=== PATIENT | female | born 1965 | race Caucasian/White ===

== ENCOUNTER 2016-11-10 03:56 | Emergency (ER) | payer BC ==
[~2016-11-10] VITALS: Ht 165.1 cm; Wt 62.7 kg
[2016-11-10 03:56] VITALS: Ht 165.1 cm; Wt 62.7 kg
[~2016-11-10 03:56] MED LIST: BUTA1CAP5 PO; CITA-49 PO; FENO150C2 PO; HYDR-2122 PO; LOVA20TA3 PO; OMEP40CA30 PO
--- OUTSIDE RECORDS SUMMARY | 2016-11-10 04:02 | XMS REPORT | Referral Summary ---
Author Author [facility], Family Medicine Organization [facility] Address Unknown Phone Unavailable Care Team Providers Care Object Oriented Developer Name Role Phone Augustin Estrada Primary Care Physician [phone] Encounter Date(s): 11/28/15 - 11/28/15 [facility], [address] [place] [address]- Discharge Diagnosis: Contusion of thorax, unspecified, initial encounter Discharge Disposition: 01-Home or Self Care Attending Physician: Mark Lopez MD Admitting Physician: Mark Lopez MD Vital Signs Most recent to 1 oldest [Reference Range]: Temperature Tympanic 36.8 degC [36.6-38.1 degC] (11/28/15 4:36 PM) Peripheral Pulse 80 bpm Rate [60-100 bpm] (11/28/15 4:36 PM) Respiratory Rate 16 br/min [14-20 br/min] (11/28/15 4:36 PM) Blood Pressure 124/84 mmHg [90-140/60-90 mmHg] (11/28/15 4:36 PM) Problem List No data available for this section Allergies, Adverse Reactions, Alerts Substance Reaction Severity Status Imitrex Active Topamax Active Medications citalopram 40 mg oral tablet 60 mg 1.5 tabs, Oral, Daily, 0 Refill(s) Start Date: 10/04/15 Status: Ordered cyclobenzaprine Oral, TID, as needed for muscle spasm, 0 Refill(s) Start Date: 10/10/15 Status: Ordered hydrOXYzine 50 mg, Oral, Daily, 0 Refill(s) Start Date: 10/04/15 Status: Ordered Lipofen 150 mg oral capsule mg caps, Oral, Daily, 0 Refill(s) Start Date: 10/04/15 Status: Ordered lovastatin 20 mg oral tablet 20 mg, Oral, Daily, 0 Refill(s) Start Date: 10/04/15 Status: Ordered omeprazole 40 mg oral delayed release capsule 40 mg, Oral, Daily, 0 Refill(s) Start Date: 10/04/15 Status: Ordered Results No data available for this section Immunizations No data available for this section Procedures No data available for this section Social History Social History Type Response Smoking Status Current every day smoker; Type: Cigarettes; Tobacco use per day: Pack Assessment and Plan Extracted from: Title: Office Visit Note Author: Mark Lopez MD Date: 11/28/15 Assessment/Plan 1.Contusion of thorax, unspecified, initial encounter She appears to be back to normal. Notes were completed to allow her to return to work without restriction. No further follow-up unless she has further problems questions or concerns. Ordered: Office Visit Level 3 Est 41900
--- OUTSIDE RECORDS SUMMARY | 2016-11-10 04:02 | XMS REPORT | Referral Summary ---
Author Author [facility], Family Medicine Organization [facility] Address Unknown Phone Unavailable Care Team Providers Care Canal Structure Operator Name Role Phone Madison Lopez Primary Care Physician [phone] Encounter VC Date(s): 05/06/16 - 05/06/16 [facility] [address] [place] [id number] Discharge Diagnosis: Acute bronchitis due to other specified organisms Discharge Diagnosis: Acute bronchitis Discharge Diagnosis: Acute bronchospasm Discharge Disposition: 01-Home or Self Care Attending Physician: Mark Lopez MD Admitting Physician: Mark Lopez MD Vital Signs Most recent to 1 oldest [Reference Range]: Temperature Tympanic 37.0 degC [36.6-38.1 degC] (05/06/16 1:27 PM) Peripheral Pulse 84 bpm Rate [60-100 bpm] (05/06/16 1:27 PM) Respiratory Rate 16 br/min [14-20 br/min] (05/06/16 1:27 PM) Blood Pressure 110/80 mmHg [90-140/60-90 mmHg] (05/06/16 1:27 PM) Problem List Condition Effective Dates Status Health Status Informant Chronic Active GERD(Confirmed) Hypercholesteremia(C Active onfirmed) Migraine(Confirmed) Active Depression(Confirmed Active ) Allergies, Adverse Reactions, Alerts Substance Reaction Severity Status Imitrex Active Topamax Active Medications citalopram 40 mg oral tablet 40 mg 1 tabs, Oral, Daily, note change in sig, # 90 tabs, 3 Refill(s), [facility] : [facility] #[id number], 1 tabs Oral Daily,Instr:note change in sig Start Date: 04/30/16 Status: Ordered Fioricet oral tablet 2 tabs, Oral, q4hr, as needed for headache, # 30 tabs, 0 Refill(s), Pharmacy: [facility] #[id number] Start Date: 04/30/16 Stop Date: 04/30/17 Status: Ordered hydrOXYzine 50 mg, Oral, Daily, 0 Refill(s) Start Date: 10/04/15 Status: Ordered Levaquin 500 mg oral tablet 500 mg 1 tabs, Oral, q24hr, X 10 days, # 10 tabs, 0 Refill(s), Pharmacy: [facility] #[id number], 1 tabs Oral q24hr,x10 days Start Date: 05/06/16 Stop Date: 05/16/16 Status: Ordered lovastatin 20 mg oral tablet 20 mg, Oral, Daily, # 90 tabs, 3 Refill(s), Pharmacy: [facility] #[id number], 20 mg Oral Daily Start Date: 04/30/16 Status: Ordered omeprazole 40 mg oral delayed release capsule 40 mg, Oral, Daily, # 90 caps, 3 Refill(s), Pharmacy: [facility] #[id number], 40 mg Oral Daily Start Date: 04/30/16 Status: Ordered predniSONE 10 mg oral tablet See Instructions, Take 4 tablets for 2 days, then 3 for 2 days then 2 for 2 days , then 1 for 2 days, # 20 Each, 0 Refill(s), Pharmacy: [facility] #[id number] , Take 4 tablets for 2 days, then 3 for 2 days then 2 for 2 days, then 1 for 2 days Start Date: 05/06/16 Status: Ordered Results No data available for this section Immunizations Vaccine Date Refusal Reason influenza virus vaccine, inactivated 04/30/16 Procedures Procedure Date Related Diagnosis Body Site Mammogram 2014 Vaginal Pap smear 2015 Colonoscopy 2014 Social History Social History Type Response Smoking Status Current every day smoker; Type: Cigarettes; Tobacco use per day: Pack Assessment and Plan Extracted from: Title: Office Visit Note Author: Mark Lopez MD Date: 05/06/16 Assessment/Plan 1.Acute bronchitis, Acute bronchitis due to other specified organisms I've recommended Levaquin 500 mg daily for 10 days. If not improving over the next 4-5 days or symptoms progress or worsen she'll let us now. Ordered: Office Visit Level 3 Est 39853 2.Acute bronchospasm She is having some bronchospasm I've recommended a round of prednisoneas listed below. If not improving or further problems develop follow-up. Ordered: Office Visit Level 3 Est 90738 She should continue her other routine medications. Extracted from: Title: Office Visit Note Author: Mark Lopez MD Date: 05/06/16 Assessment/Plan 1.Acute bronchitis, Acute bronchitis due to other specified organisms Ordered: Office Visit Level 3 Est 92351 2.Acute bronchospasm Ordered: Office Visit Level 3 Est 78311
--- OUTSIDE RECORDS SUMMARY | 2016-11-10 04:02 | XMS REPORT | Referral Summary ---
Author Author [facility], Immediate [facility] Organization [facility] Address Unknown Phone Unavailable Care Team Providers Care Manager Quality Improvement Name Role Phone Sean Augustin Primary Care Physician [phone] Encounter VC Date(s): 10/04/15 - 10/04/15 [facility], [address] [place] [address]- Discharge Disposition: 01-Home or Self Care Attending Physician: Nick Pak MD Admitting Physician: Nick Pak MD Vital Signs Most recent to 1 oldest [Reference Range]: Temperature Tympanic 36.6 degC [36.6-38.1 degC] (10/04/15 9:44 AM) Peripheral Pulse 75 bpm Rate [60-100 bpm] (10/04/15 9:44 AM) Blood Pressure 102/64 mmHg [90-140/60-90 mmHg] (10/04/15 9:44 AM) SpO2 98 % (10/04/15 9:44 AM) Problem List No data available for this section Allergies, Adverse Reactions, Alerts Substance Reaction Severity Status Imitrex Active Topamax Active Medications citalopram 40 mg oral tablet 60 mg 1.5 tabs, Oral, Daily, 0 Refill(s) Start Date: 10/04/15 Status: Ordered hydrOXYzine 50 mg, Oral, Daily, 0 Refill(s) Start Date: 10/04/15 Status: Ordered Lipofen 150 mg oral capsule mg caps, Oral, Daily, 0 Refill(s) Start Date: 10/04/15 Status: Ordered lovastatin 20 mg oral tablet 20 mg, Oral, Daily, 0 Refill(s) Start Date: 10/04/15 Status: Ordered Sophia 7.5 mg-325 mg oral tablet 1 tabs, Oral, q4hr, as needed for pain, # 30 tabs, 0 Refill(s) Start Date: 10/04/15 Stop Date: 10/20/15 Status: Ordered omeprazole 40 mg oral delayed [...] Pack Assessment and Plan Extracted from: Title: Ambulatory Patient Education Author: Nick Pak MD Date: 10/03 Family Medicine Rib Fracture A rib fracture is a break or crack in one of the bones of the ribs. The ribs are a group of long, curved bones that wrap around your chest and attach to your spine. They protect your lungs and other organs in the chest cavity. A broken or cracked rib is often painful, but most do not cause other problems. Most rib fractures heal on their own over time. However, rib fractures can be more serious if multiple ribs are broken or if broken ribs move out of place and push against other structures. CAUSES A direct blow to the chest. For example, this could happen during contact sports, a car accident, or a fall against a hard object. Repetitive movements with high force, such as pitching a baseball or having severe coughing spells. SYMPTOMS Pain when you breathe in or cough. Pain when someone presses on the injured area. DIAGNOSIS Your caregiver will perform a physical exam. Various imaging tests may be ordered to confirm the diagnosis and to look for related injuries. These tests may include a chest X-ray, computed tomography (CT), magnetic resonance imaging (MRI), or a bone scan. TREATMENT Rib fractures usually heal on their own in 13 months. The longer healing period is often associated with a continued cough or other aggravating activities. During the healing period, pain control is very important. Medication is usually given to control pain. Hospitalization or surgery may be needed for more severe injuries, such as those in which multiple ribs are broken or the ribs have moved out of place. HOME CARE INSTRUCTIONS Avoid strenuous activity and any activities or movements that cause pain. Be careful during activities and avoid bumping the injured rib. Gradually increase activity as directed by your caregiver. Only take [id number]-[id number] or prescription medications as directed by your caregiver. Do not take other medications without asking your caregiver first. Apply ice to the injured area for the first 12 days after you have been treated or as directed by your caregiver. Applying ice helps to reduce inflammation and pain. Put ice in a plastic bag. Place a towel between your skin and the bag. Leave the ice on for 1520 minutes at a time, every 2 hours while you are awake. Perform deep breathing as directed by your caregiver. This will help prevent pneumonia, which is a common complication of a broken rib. Your caregiver may instruct you to: Take deep breaths several times a day. Try to cough several times a day, holding a pillow against the injured area. Use a device called an incentive spirometer to practice deep breathing several times a day. Drink enough fluids to keep your urine clear or pale yellow. This will help you avoid constipation. Do not wear a rib belt or binder. These restrict breathing, which can lead to pneumonia. SEEK IMMEDIATE MEDICAL CARE IF: You have a fever. You have difficulty breathing or shortness of breath. You develop a continual cough, or you cough up thick or bloody sputum. You feel sick to your stomach (nausea), throw up (vomit), or have abdominal pain. You have worsening pain not controlled with medications. MAKE SURE YOU: Understand these instructions. Will watch your condition. Will get help right away if you are not doing well or get worse. This information is not intended to replace advice given to you by your health care provider. Make sure you discuss any questions you have with your health care provider. Document Released: 06/06/2006 Document Revised: 02/06/2014 Document Reviewed: [facility] Patient Information 2015 [facility]. Physical Medicine and Rehabilitation Rib Belt Rib belts can be used to help control the pain from a chest injury. The belt gives gentle support to the injured area. It also helps reduce chest motion. RISKS AND COMPLICATIONS Rib belts can increase the risk of getting pneumonia after a chest injury. You must be sure to breathe deeply and cough several times every hour to keep your lungs clear. Do not use a rib belt if it does not help relieve your pain. HOW TO APPLY THE RIB BELT Wear the rib belt only as directed by your health care provider. Take the belt off at night when you go to bed. 1.Place the belt across your back and stretch the ends out and forward across your rib cage. 2.Press the velcro areas together when the belt is putting gentle pressure on your chest wall. Do not make the rib belt too tight. Make sure you can breathe comfortably. SEEK MEDICAL CARE IF: You have a fever. SEEK IMMEDIATE MEDICAL CARE IF: You develop pus-like sputum or an uncontrolled cough. You begin coughing up blood. You have pain that is getting worse or is not controlled with medicines. MAKE SURE YOU: Understand these instructions. Will watch your condition. Will get help right away if you are not doing well or get worse. This information is not intended to replace advice given to you by your health care provider. Make sure you discuss any questions you have with your health care provider. Document Released: 07/14/2005 Document Revised: 03/25/2015 Document Reviewed: [facility] Patient Information [address] No follow up information was provided. Extracted from: Title: left lateral rib pain, Author: Nick Pak MD Date: 10/04/15 depression Impression and Plan Diagnosis Rib pain on left side (XVS78-VR R07.81, Working, Medical). Rib fracture ([id number] S22.32XA, Working, Medical). Mild major depression ([id number]-GF F32.0, Working, Medical). Plan: 1) Rib belt applied. 2) Sophia prescribed for PRN use. Not to drive when taking it. Off work next week. 3) Rest at home. 4) Followup with your PCP next week and as needed. 5) No change to your routine meds otherwise.. Orders Orders (Selected) Outpatient Orders Ordered Garment, belt, sleeve or other covering, elastic or similar stretchable A4466: Office Visit Level 4 Est 74344: Prescriptions Prescribed Sophia 7.5 mg-325 mg oral tablet: 1 tabs, Oral, q4hr, PRN: as needed for pain, 30 tabs, 0 Refill(s). Dx/Order Association Plan: Diagnosis: Mild major depression Comment: Modified: Office Visit Level 4 Est 37657; 10/04/15 15:01:00 CDT, Rib fracture | Rib pain on left side | Mild major depression Diagnosis: Rib fracture Comment: Modified: Office Visit Level 4 Est 03076; 10/04/15 15:01:00 CDT, Rib fracture | Rib pain on left side | Mild major depression Diagnosis: Rib pain on left side Comment: Modified: Office Visit Level 4 Est 21508; 10/04/15 15:01:00 CDT, Rib fracture | Rib pain on left side | Mild major depression Additional Orders: Comment: Ordered: Sophia 7.5 mg-325 mg oral tablet,1 tabs, Oral, q4hr, as needed for pain, # 30 tabs, 0 Refill(s) Modified: citalopram 40 mg oral tablet,60 mg 1.5 tabs, Oral, Daily , 0 Refill(s) Modified: hydrOXYzine,50 mg, Oral, Daily, 0 Refill(s) Modified: lovastatin 20 mg oral tablet,20 mg, Oral, Daily, 0 Refill (s) Modified: omeprazole 40 mg oral delayed release capsule,40 mg, Oral , Daily, 0 Refill(s) End of Orders ."
--- OUTSIDE RECORDS SUMMARY | 2016-11-10 04:02 | XMS REPORT | Continuity of Care Document ---
Author Author [facility] Organization [facility] Address Unknown Phone Unavailable Allergies Active Description Code Type Severity Reaction Onset Reported/Identified Relationship to Patient Clinical Status Yes sumatriptan sumatriptan Drug Allergy Mild THROAT TIGHTENS 02/27/2014 Yes topiramate topiramate Drug Allergy Unknown SLEEP WALK 02/27/2014 Medications Problems Procedures Code Description Performed By Performed On 80.51 EXCISION INTERVERT DISC Sotero Casanova MD 02/28/2014 80.54 OTHER AND UNSPECIFIED REPAIR OF THE ANULUS FIBROSU Sotero Casanova MD 02/28/2014 81.07 LUMBAR LUMBOSACRAL FUSION OF POSTERIOR COL/TECHN Sotero Casanova MD 02/28/2014 81.62 FUSION/REFUS OF 2-3 VERTEBRAE Sotero Casanova MD 02/28/2014 Results Encounters ACCT No. Visit Date/Time Discharge Status Pt. Type Provider Facility Loc./Unit Complaint [id number] 02/28/2014 06:47:00 2013 14:06:00 DIS Outpatient Sotero Casanova MD [facility] STEPHIE
--- OUTSIDE RECORDS SUMMARY | 2016-11-10 04:02 | XMS REPORT | Referral Summary ---
Author Author [facility] Family [facility] Organization [facility] Address Unknown Phone Unavailable Care Team Providers Care Knitting Machine Fixer Name Role Phone Madison Lopez Primary Care Physician [phone] Encounter VC Date(s): 07/29/16 - 07/29/16 [facility], [address] [place] [address]- Discharge Diagnosis: Chronic neck pain Discharge Diagnosis: Generalized anxiety disorder Discharge Diagnosis: Depression Discharge Disposition: 01-Home or Self Care Attending Physician: Mark Lopez MD Admitting Physician: Mark Lopez MD Vital Signs Most recent to 1 oldest [Reference Range]: Temperature Tympanic 36.7 degC [36.6-38.1 degC] (07/29/16 1:50 PM) Peripheral Pulse 76 bpm Rate [60-100 bpm] (07/29/16 1:50 PM) Respiratory Rate 16 br/min [14-20 br/min] (07/29/16 1:50 PM) Blood Pressure 100/72 mmHg [90-140/60-90 mmHg] (07/29/16 1:50 PM) Problem List Condition Effective Dates Status Health Status Informant Chronic Active GERD(Confirmed) Hypercholesteremia(C Active onfirmed) Migraine(Confirmed) Active Depression(Confirmed Active ) Allergies, Adverse Reactions, Alerts Substance Reaction Severity Status Imitrex Active Topamax Active Medications atorvastatin 40 mg oral tablet 40 mg 1 tabs, Oral, Daily, # 30 tabs, 4 Refill(s), Pharmacy: [facility] # [id number], 1 tabs Oral Daily Start Date: 05/21/16 Status: Ordered butalbital/acetaminophen/caffeine 50 mg-325 mg-40 mg oral tablet See Instructions, TAKE TWO TABLETS BY MOUTH EVERY 4 HOURS NEEDED HEADACHE, # 30 tabs, 2 Refill(s), eRx: [facility] #[id number] Start Date: 07/28/16 Status: Ordered citalopram 40 mg oral tablet 60 mg 1.5 tabs, Oral, Daily, # 60 tabs, 6 Refill(s), Pharmacy: [facility] #[id number], 1.5 tabs Oral Daily Start Date: 07/29/16 Status: Ordered hydrOXYzine 50 mg, Oral, Daily, 0 Refill(s) Start Date: 10/04/15 Status: Ordered LORazepam 1 mg oral tablet 1 mg 1 tabs, Oral, TID, as needed for anxiety, [place], # 40 tabs, 0 Refill(s) Start Date: 07/29/16 Status: Ordered [place] 5 mg-325 mg oral tablet 1 tabs, Oral, q6hr, as needed for pain, # 40 tabs, 0 Refill(s) Start Date: 07/29/16 Status: Ordered omeprazole 40 mg oral delayed release capsule 40 mg, Oral, Daily, # 90 caps, 3 Refill(s), Pharmacy: [facility] #[id number], 40 mg Oral Daily Start Date: 04/30/16 Status: Ordered Results No data available for this section Immunizations Given and Recorded Vaccine Date Status Refusal Reason influenza virus vaccine, inactivated 04/30/16 Given Procedures Procedure Date Related Diagnosis Body Site Mammogram 2014 Vaginal Pap smear 2014 Colonoscopy 2013 Social History Social History Type Response Smoking Status Current every day smoker; Type: Cigarettes; Tobacco use per day: Pack Assessment and Plan Extracted from: Title: Office Visit Note Author: Mark Lopez MD Date: 07/29/16 Assessment/Plan 1.Depression I've recommended increasing her citalopram from 40 to 60 mgdaily. 2.Generalized anxiety disorder I'm going to addlorazepam 1 mg by mouth every 8 hours when necessary for her anxietyand nervousness. 3.Chronic neck pain I gave her some [place] 5/325 to be used when necessary for neck pain. Warned that mixing this in the lorazepam can be somewhatproblematic as far as grogginess andrespiratory depression. Encouraged her to avoid that. I encouraged her to follow-up in the next few weeks and let me know how she's doing. Follow up as previously recommended for other chronic health problems otherwise.
--- OUTSIDE RECORDS SUMMARY | 2016-11-10 04:02 | XMS REPORT | Referral Summary ---
Author Author [facility] Family Medicine Organization [facility] Address Unknown Phone Unavailable Care Team Providers Care Liquid Flavor Compounder Name Role Phone Augustin Estrada Primary Care Physician [phone] Encounter VC Date(s): 10/23/15 - 10/23/15 [facility] [address] [place] [address] Discharge Diagnosis: Contusion of thorax Discharge Disposition: 01-Home or Self Care Attending Physician: Mark Lopez MD Admitting Physician: Mark Lopez MD Vital Signs Most recent to 1 oldest [Reference Range]: Temperature Tympanic 36.7 degC [36.6-38.1 degC] (10/23/15 1:41 PM) Peripheral Pulse 76 bpm Rate [60-100 bpm] (10/23/15 1:41 PM) Respiratory Rate 16 br/min [14-20 br/min] (10/23/15 1:41 PM) Blood Pressure 122/86 mmHg [90-140/60-90 mmHg] (10/23/15 1:41 PM) Problem List No data available for this section Allergies, Adverse Reactions, Alerts Substance Reaction Severity Status Imitrex Active Topamax Active Medications citalopram 40 mg oral tablet 60 mg 1.5 tabs, Oral, Daily, 0 Refill(s) Start Date: 10/04/15 Status: Ordered cyclobenzaprine Oral, TID, as needed for muscle spasm, 0 Refill(s) Start Date: 10/10/15 Status: Ordered cyclobenzaprine 10 mg oral tablet 10 mg 1 tabs, Oral, TID, as needed for spasm, # 30 tabs, 0 Refill(s) Start Date: 10/17/15 Status: Ordered hydrOXYzine 50 mg, Oral, Daily, 0 Refill(s) Start Date: 10/04/15 Status: Ordered Lipofen 150 mg oral capsule mg caps, Oral, Daily, 0 Refill(s) Start Date: 10/04/15 Status: Ordered lovastatin 20 mg oral tablet 20 mg, Oral, Daily, 0 Refill(s) Start Date: 10/04/15 Status: Ordered [place] 7.5 mg-325 mg oral tablet 1 tabs, Oral, q4hr, as needed for pain, # 30 tabs, 0 Refill(s) Start Date: 10/23/15 Status: Ordered omeprazole 40 mg oral delayed [...] Visit Note Author: Mark Lopez MD Date: 10/23/15 Assessment/Plan Contusion of thorax, Contusion of thorax, unspecified, initial encounter Overall she continues to show slow but steady improvement. Continue current restrictions without change. Follow-up weekly. Refills on [place] provided today. If symptomsor sooner she's having problemsor worsening symptoms she will let us know. Ordered: Office Visit Level 2 Est 39039 Orders: HYDROcodone-acetaminophen, 1 tabs, Oral, q4hr, as needed for pain, # 30 tabs, 0 Refill(s)
--- OUTSIDE RECORDS SUMMARY | 2016-11-10 04:02 | XMS REPORT | Referral Summary ---
Author Author [facility] Organization [facility] Address Unknown Phone Unavailable Care Team Providers Care Band Bias Machine Operator Name Role Phone Augustin Estrada Primary Care Physician [phone] Encounter VC Date(s): 11/14/15 - 11/14/15 [facility], [address] [place] [address] Discharge Diagnosis: Contusion of thorax Discharge Disposition: 01-Home or Self Care Attending Physician: Mark Lopez MD Admitting Physician: Mark Lopez MD Vital Signs Most recent to 1 oldest [Reference Range]: Temperature Tympanic 36.4 degC [36.6-38.1 degC] *LOW* (11/14/15 9:07 AM) Blood Pressure 132/90 mmHg [90-140/60-90 mmHg] (11/14/15 9:07 AM) Problem List No data available for [...] 0 Refill(s) Start Date: 10/04/15 Status: Ordered [place] 7.5 mg-325 mg oral tablet 1 tabs, Oral, q4hr, as needed for pain, # 30 tabs, 0 Refill(s) Start Date: 11/12/15 Status: Ordered omeprazole 40 mg oral delayed [...] Visit Note Author: Mark Lopez MD Date: 11/14/15 Assessment/Plan 1.Contusion of thorax She appears yunior improving. I've recommended that she may return to work no longer than 4 hour shift with 25 pound weight restriction. 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 We'll check her back in 10 daysor so and hopefully at that point be able to release her [place]. If she has any problems or concerns between now and then she'll let us know. She may continue to use medication we've provided on a when necessary basis. Ordered: Office Visit Level 3 Est 62268
--- OUTSIDE RECORDS SUMMARY | 2016-11-10 04:02 | XMS REPORT | Referral Summary ---
Author Author [facility], [facility] Organization [facility] Address Unknown Phone Unavailable Care Team Providers Care Arresting Gear Operator Name Role Phone Augustin Estrada Primary Care Physician [phone] Encounter VC Date(s): 10/17/15 - 10/17/15 [facility], [address] [place] [address]- Discharge Diagnosis: Contusion of chest wall Discharge Disposition: 01-Home or Self Care Attending Physician: Mark oLpez MD Admitting Physician: Mark Lopez MD Vital Signs Most recent to 1 oldest [Reference Range]: Temperature Tympanic 36.6 degC [36.6-38.1 degC] (10/17/15 9:29 AM) Peripheral Pulse 80 bpm Rate [60-100 bpm] (10/17/15 9:29 AM) Blood Pressure 132/86 mmHg [90-140/60-90 mmHg] (10/17/15 9:29 AM) Problem List No data available for [...] 0 Refill(s) Start Date: 10/04/15 Status: Ordered [place] 7.5 mg-325 mg oral tablet 1 tabs, Oral, q4hr, as needed for pain, # 30 tabs, 0 Refill(s) Start Date: 10/17/15 Status: Ordered omeprazole 40 mg oral delayed [...] Visit Note Author: Mark Lopez MD Date: 10/17/15 Assessment/Plan Contusion of chest wall, Contusion of thorax, unspecified, initial encounter I've recommendedcontinue current treatment and restrictions and weekly follow-up. Refills were given on hydrocodone and Flexeril today. She'll continue to use the rib belt. We'll see her next week. Ordered: Office Visit Level 3 Est [id number] Orders: cyclobenzaprine, 10 mg 1 tabs, Oral, TID, as needed for spasm, # 30 tabs, 0 Refill(s) HYDROcodone-acetaminophen, 1 tabs, Oral, q4hr, as needed for pain, # 30 tabs, 0 Refill(s)
--- OUTSIDE RECORDS SUMMARY | 2016-11-10 04:02 | XMS REPORT | Referral Summary ---
Author Author [facility] Organization [facility] Address Unknown Phone Unavailable Care Team Providers Care Report Clerk Name Role Phone Madison Lopez Primary Care Physician [phone] Encounter Date(s): 04/30/16 - 04/30/16 [facility], [address] [place] [address]- Discharge Diagnosis: Chronic GERD Discharge Diagnosis: Depression Discharge Diagnosis: Acute bronchitis Discharge Diagnosis: Hypercholesteremia Discharge Diagnosis: Migraine Discharge Disposition: 01-Home or Self Care Attending Physician: Mark Lopez MD Admitting Physician: Mark Lopez MD Vital Signs Most recent to 1 oldest [Reference Range]: Temperature Tympanic 36.8 degC [36.6-38.1 degC] (04/30/16 9:54 AM) Peripheral Pulse 88 bpm Rate [60-100 bpm] (04/30/16 9:54 AM) Respiratory Rate 16 br/min [14-20 br/min] (04/30/16 9:54 AM) Blood Pressure 134/94 mmHg [90-140/60-90 mmHg] (04/30/16 9:54 AM) Problem List Condition Effective Dates Status Health Status Informant Chronic Active GERD(Confirmed) Hypercholesteremia(C Active onfirmed) Migraine(Confirmed) Active Depression(Confirmed Active ) Allergies, Adverse Reactions, Alerts Substance Reaction Severity Status Imitrex Active Topamax Active Medications citalopram 40 mg oral tablet 40 mg 1 tabs, Oral, Daily, note change in sig, # 90 tabs, 3 Refill(s), Pharmacy : [facility] #[id number], 1 tabs Oral Daily,Instr:note change in sig Start Date: 04/30/16 Status: Ordered cyclobenzaprine Oral, TID, as needed for muscle spasm, 0 Refill(s) Start Date: 10/10/15 Status: Ordered Fioricet oral tablet 2 tabs, Oral, q4hr, as needed for headache, # 30 tabs, 0 Refill(s), Pharmacy: [facility] #[id number] Start Date: 04/30/16 Stop Date: 04/30/17 Status: Ordered hydrOXYzine 50 mg, Oral, Daily, 0 Refill(s) Start Date: 10/04/15 Status: Ordered lovastatin 20 mg oral tablet 20 mg, Oral, Daily, # 90 tabs, 3 Refill(s), Pharmacy: [facility] #[id number], 20 mg Oral Daily Start Date: 04/30/16 Status: Ordered omeprazole 40 mg oral delayed release capsule 40 mg, Oral, Daily, # 90 caps, 3 Refill(s), Pharmacy: [facility] #[id number], 40 mg Oral Daily Start Date: 04/30/16 Status: Ordered Results No data available for this section Immunizations Vaccine Date Refusal Reason influenza virus vaccine, inactivated 04/30/16 Procedures Procedure Date Related Diagnosis Body Site Mammogram 2014 Vaginal Pap smear 2014 Colonoscopy 2014 Social History Social History Type Response Smoking Status Current every day smoker; Type: Cigarettes; Tobacco use per day: Pack Assessment and Plan Extracted from: Title: Office Visit Note Author: Mark Lopez MD Date: 04/30/16 Assessment/Plan 1.Acute bronchitis I've recommended a round of Zithromax. Further problems or concerns follow-up. Ordered: Office Visit Level 4 Est 27359 2.Hypercholesteremia We will obtain a record release and Dr. Milligan but also order fasting lipid and chemistry panels for next week. She'll come in fasting for those. Will discussany changes in medicationsonce we see the results of this test. Ordered: Office Visit Level 4 Est [id number] 3.Depression She feels like her depression is well controlled with citalopram no change in current treatment recommended. Ordered: Office Visit Level 4 Est [id number] 4.Chronic GERD This is well controlled with omeprazole no change in current treatment recommended. Ordered: Office Visit Level 4 Est 66376 5.Migraine She uses intermittent Fioricet and that seems to keep her headaches under control. These are typically triggered by smells orstress. No change in current treatment recommended. Ordered: Office Visit Level 4 Est [id number] Flu shot recommended and provided today.
--- OUTSIDE RECORDS SUMMARY | 2016-11-10 04:02 | XMS REPORT | Referral Summary ---
Author Author [facility] Organization [facility] Address Unknown Phone Unavailable Care Team Providers Care Rotary Shear Operator Name Role Phone Augustin Estrada Primary Care Physician [phone] Encounter Date(s): 10/31/15 - 10/31/15 [facility], [address] [place] [address]- Discharge Diagnosis: Contusion of thorax, unspecified, initial encounter Discharge Disposition: 01-Home or Self Care Attending Physician: Mark Lopez MD Admitting Physician: Mark Lopez MD Vital Signs Most recent to 1 oldest [Reference Range]: Temperature Tympanic 36.3 degC [36.6-38.1 degC] *LOW* (10/31/15 10:26 AM) Peripheral Pulse 76 bpm Rate [60-100 bpm] (10/31/15 10:26 AM) Respiratory Rate 16 br/min [14-20 br/min] (10/31/15 10:26 AM) Blood Pressure 128/90 mmHg [90-140/60-90 mmHg] (10/31/15 10:26 AM) Problem List No data available for [...] 0 Refill(s) Start Date: 10/04/15 Status: Ordered [place] 7.5 mg-325 mg oral tablet 1 tabs, Oral, q4hr, as needed for pain, # 30 tabs, 0 Refill(s) Start Date: 10/31/15 Status: Ordered omeprazole 40 mg oral delayed [...] Visit Note Author: Mark Lopez MD Date: 10/31/15 Assessment/Plan Contusion of thorax, unspecified, initial encounter, Contusion of thorax, unspecified, initial encounter Continue current treatment plan with restand work restrictions. Hydrocodone was refilledon an as-needed basis. Recheckweekly. We talked about needing 68 weeks to completely recover from this. Ordered: Office Visit Level 3 Est [id number] Orders: HYDROcodone-acetaminophen, 1 tabs, Oral, q4hr, as needed for pain, # 30 tabs, 0 Refill(s)
--- OUTSIDE RECORDS SUMMARY | 2016-11-10 04:02 | XMS REPORT | Referral Summary ---
Author Author [facility] Organization [facility] Address Unknown Phone Unavailable Care Team Providers Care Driver Supervisor Name Role Phone Augustin Estrada Primary Care Physician [phone] Encounter VC Date(s): 11/07/15 - 11/07/15 [facility], [address] [place] [address]- Discharge Diagnosis: Contusion of thorax Discharge Disposition: 01-Home or Self Care Attending Physician: Mark Lopez MD Admitting Physician: Mark Lopez MD Vital Signs Most recent to 1 oldest [Reference Range]: Temperature Tympanic 36.5 degC [36.6-38.1 degC] *LOW* (11/07/15 10:54 AM) Peripheral Pulse 84 bpm Rate [60-100 bpm] (11/07/15 10:54 AM) Respiratory Rate 16 br/min [14-20 br/min] (11/07/15 10:54 AM) Blood Pressure 142/100 mmHg [90-140/60-90 mmHg] *HI* (11/07/15 10:54 AM) Problem List No data available for [...] 0 Refill(s) Start Date: 10/04/15 Status: Ordered [place] 7.5 mg-325 mg oral tablet 1 tabs, Oral, q4hr, as needed for pain, # 30 tabs, 0 Refill(s) Start Date: 11/07/15 Status: Ordered omeprazole 40 mg oral delayed [...] Visit Note Author: Mark Lopez MD Date: 11/07/15 Assessment/Plan 1.Contusion of thorax She still having a fair amount of pain. I will refill her hydrocodone one more time. I'm going to repeat some rib films today because of her ongoing discomfort. If those look okay then we'll see if we can get her into some physical therapy and see if that will help some. Follow- up in 1 week again. Ordered: XR Ribs 2 Views Left
--- OUTSIDE RECORDS SUMMARY | 2016-11-10 04:02 | XMS REPORT | Referral Summary ---
Author Author [facility] Organization [facility] Address Unknown Phone Unavailable Care Team Providers Care Patient Service Technician Pst Name Role Phone Augustin Estrada Primary Care Physician [phone] Encounter VC Date(s): 10/10/15 - 10/10/15 [facility], [address] [place] [address]- Discharge Diagnosis: Rib pain on left side Discharge Disposition: 01-Home or Self Care Attending Physician: Mark Lopez MD Admitting Physician: Mark Lopez MD Vital Signs Most recent to 1 oldest [Reference Range]: Temperature Tympanic 36.5 degC [36.6-38.1 degC] *LOW* (10/10/15 2:18 PM) Peripheral Pulse 76 bpm Rate [60-100 bpm] (10/10/15 2:18 PM) Respiratory Rate 16 br/min [14-20 br/min] (10/10/15 2:18 PM) Blood Pressure 124/84 mmHg [90-140/60-90 mmHg] (10/10/15 2:18 PM) Problem List No data available for [...] 0 Refill(s) Start Date: 10/04/15 Status: Ordered [place] 7.5 mg-325 mg oral tablet 1 tabs, [...] Visit Note Author: Mark Lopez MD Date: 10/10/15 Assessment/Plan Rib pain on left side She does have point tenderness over the seventh and eighth rib laterally on the left side. I've recommended repeatingrib films here for further evaluation. In the meantime work restrictions are provided. Follow-up in one week. Continue hydrocodone as needed for pain. If the rib belt is helpful she may use it. Estimatedlength of return to work is 4- 6 weeks. Ordered: Office Visit Level 3 Est [id number] XR Ribs 2 Views Left
--- NOTE | 2016-11-10 04:15 | NUR ---
provider dr adair in room to see pt. in room
--- OUTSIDE RECORDS SUMMARY | 2016-11-10 04:21 | XMS REPORT | Continuity of Care Document ---
Author Author [facility] Organization [facility] Address Unknown Phone Unavailable Allergies Active Description [...] Status Pt. Type Provider Facility Loc./Unit Complaint [id number] 02/28/2014 06:47:00 2013 14:06:00 DIS Outpatient Sotero Casanova MD [facility]
--- NOTE | 2016-11-10 04:22 | ERPDOC ---
Departure Disposition Decision Date: November 10, 2016 Disposition Decision Time: 04:23 Disposition: 01 DISCHARGED HOME, SELF-CARE Impression Impression Impression: Primary Impression: Migraine Qualified Codes: G43.019 - Migraine without aura, intractable, without status migrainosus Severity: Severe Condition: Improved Seen By: Physician only Referrals: GAEL GAGE MD (PCP) Patient Instructions: Migraine Headache (ED) Problems/Meds/Labs Reviewed?: Yes Medications reviewed and manag: Yes Additional Instructions: Usual routine medications as needed Compazine 10 mg one tablet 4 times daily as needed for nausea or headache Follow up care ordered?: Yes Mental Status: Alert Scripts Prochlorperazine Maleate (Compazine) 10 Mg Tablet 10 MG PO QID, #30 TAB 0 Refills Prov: TROY TELLEZ MD 11/10/16 HPI - Headache General Chief Complaint: Headache Stated Complaint: MIGRAINE Time Seen by Provider: 04:00 Source: patient Exam Limitations: no limitations HPI - Headache Initial Comments Severe migraine headache right periorbital, consistent with all of her prior headaches, with no new changes. This migraine has become actable, and she is not able to keep any medicines down because of profound vomiting. Patient normally uses Fioricet, is not been able to take any today. Patient also uses 7.5 mg hydrocodone 4 times daily for neck and back pain. Occurred At: home Onset: Gradual Duration: 12-24 hrs Severity/Quality: severe Location: frontal 1 - Severe migraine Associated Symptoms: nausea/vomiting, DENIES: confusion, facial pain, fatigue, fever/chills, flushing, loss of consciousness, nasal congestion, nasal drainage , numbness in legs/feet, rash, seizures, sinus infection, stiff neck, vision changes, weakness Hx of Similar Symptoms: Yes Allergies: Coded Allergies: sumatriptan (Verified Allergy, Unknown, "THROAT TIGHTENING", 08/23/15) sumatriptan succinate (Verified Allergy, Unknown, "THROAT TIGHTENING", 08/22) topiramate (Verified Allergy, Unknown, HALLUCINATIONS, 08/23/15) hydrocodone (Verified Adverse Reaction, Unknown, N/V, 08/23/15) PT STATES "I'VE TAKEN IT AND DON'T HAVE ANY PROBLEM WITH IT ANYMORE" Past History Patient Surgical History laparoscopy for endometriosis sinus surgery back surgery Past Medical History Metabolic: hypercholesterolemia GI: GERD Neurological: migraines Musculoskeletal: back pain, neck pain, osteoarthritis Psychological: depression Surgical History General: back Family History Family PMH: FOUND: CVA, diabetes, hypertension, migraines Vaccines Hx Influenza Vaccination: Yes (MAR 2013) Hx Pneumococcal Vaccination: No Social History # of Packs/Tins per Day: 0.5 Sexuality: male partner Review of Systems Constitutional Constitutional: DENIES: appetite decrease, appetite increase, chills, dizziness , fever, weakness Eyes General: photophobia ENMT Ears: DENIES: pain Hearing: DENIES: hearing loss, tinnitus Balance: DENIES: vertigo Mouth/Throat: DENIES: change in swallowing, change in voice, hoarsness, painful swallowing, sore throat Cardiovascular Cardiac: DENIES: chest pain, dyspnea on exertion Rhythm/Rate: DENIES: irregular beat, palpitations, tachycardia Vascular: DENIES: pedal edema Pulmonary Respiratory: DENIES: cough, dyspnea, pleuritic chest pain GI Upper Abdomen: nausea, vomiting, DENIES: dysphagia, heartburn/indigestion, pain Lower Abdomen: DENIES: blood in stool, constipation, diarrhea, pain General: DENIES: burning, dysuria, frequency, pain, urgency Musculoskeletal General: DENIES: cramps, joint pain, joint swelling, pain, weakness Integumentary Skin: DENIES: rash, sores Neurological General: headache, DENIES: numbness, tingling, vertigo, weakness Physical Exam General General Nourishment: well nourished, well developed, appears stated age General Body Habitus: well groomed Vitals and Pain Weight: Kilograms: Height (feet): 5 Height (inches): 5 Triage Pain Scale: RN VS reviewed by Provider: Yes Normal Exams: Head: Normocephalic w/o trauma Eyes: Pupils are PERRLA w/ EOMI (positive photophobia), No scleral icterus, irritation, or foreign bodies noted ENMT: No facial trauma, nasal exudates, pharyngeal erythema, or exudates are noted Neck: Full range of motion, without adenopathy, JVD, bruits or thyromegaly Chest/Resp: Clear all sarabia, with good airflow, and symmetry bilaterally CV: Regular rate and rhythm, without murmur or gallop, Pulses 2+ all extremities, capillary refill, <2 seconds all ext., no pedal edema noted Abdomen: Bowel sounds positive, soft, non-tender, non-distended, no hepatosplenomegaly, masses or bruits noted Lymphatic: No lymphadenopathy, or lymphedema noted Musculoskeletal: No tenderness, or deformity noted, good range of motion, all extremities Integumentary: No rashes, hives, or bruising noted, hair and nails, without abnormality Neurologic: Patient is alert, and oriented, cranial nerves, motor/sensory/ cerebellar, exams w/o gross deficits, to observation Psychiatric: Patient exhibits, appropriate attention, emotion and affect Progress Results/Orders Orders Procedure Category Date Status Time Hydromorphone PHA 11/10/16 Transmitted (Dilaudid) 04:30 Ketorolac (Toradol) PHA 11/10/16 Transmitted 04:30 Prochlorperazine PHA 11/10/16 Transmitted (Compazine) 04:30 Progress Progress Patient elects intermuscular injections, given Dilaudid 1 mg IM, Compazine 10 mg IM, and Toradol 60 mg IM - TROY TELLEZ MD November 10, 2016 04:22
[2016-11-10] MEDS ORDERED: PROC-14 PO (04:24)
[2016-11-10] MEDS ORDERED: HYDROMORPHONE 2mg/ml INJECTION IM ONE (04:30)
[2016-11-10] MEDS ORDERED: KETOROLAC 60mg/2ml INJECTION IM ONE (04:30)
[2016-11-10] MEDS ORDERED: PROCHLORPERAZINE 10mg/2ml INJECTION IM ONE (04:30)
[2016-11-10 04:55] VITALS: BP 124/72; PULSE 68; RESP 18; TEMP 97.8; O2SAT 97
--- NOTE | 2016-11-10 04:55 | NUR ---
depart pt reports headache has improved rated 5/10. pt is given dismissal instructions given with verbal understanding. pt is given script, work note. pt is ambulatory to ed registration desk
== END 2016-11-10 04:55 | disposition home or self-care (01) ==
LOC: ED 03:56
DX: G43.019 Migraine without aura, intractable, without status migrainosus (principal)
CPT/HCPCS: 96372; 99283; J0780; J1170; J1885